=== PATIENT | male | born 1990 | race Caucasian/White ===

== ENCOUNTER 2017-07-08 21:59 | Emergency (ER) | payer SELFPAY ==
--- NOTE | 2017-07-08 22:36 | ERNOTE ---
ENT HPI Presenting Symptoms: other - cough and sore throat for 2 weeks Time Seen by Provider: 07/08/17 22:32 Source: patient, family Exam Limitations: no limitations - Immun/Allergies/Home Medications Immunizations: IMMUNIZATION HX Immunizations Up to Date Yes History of Influenza Vaccine No - History of Present Illness Narrative: Pt states he started with nasal congestion that progressed to sore throat and cough Severity: Present: mild ENT Location: Present: nose, throat Review of Systems - Review of Systems Constitutional: Present: See HPI. Absent: fever, chills EYE: Absent: eye discharge ENT: Present: See HPI, nose congestion, nasal drainage, sore throat Respiratory: Present: See HPI. Absent: shortness of breath, wheezing Cardiology: Absent: chest pain Gastrointestinal/Abdominal: Absent: nausea, vomiting Genitourinary: Present: no symptoms reported Musculoskeletal: Present: no symptoms reported Skin: Present: no symptoms reported Neurological: Present: no symptoms reported Endocrine: Present: no symptoms reported Hematologic/Lymphatic: Present: no symptoms reported Psych: Present: no symptoms reported - Patient's Past Medical History Patient History - Medical: No pertinent hx Patient History - Cardiac/Respiratory: No pertinent hx Patient History - Cancer: No Hx of Cancer Patient History - Surgical Procedures: No surgical history Patient History - Other: None - Social History Living Situations: home Abuse History: No History of abuse Psych History: No pertinent hx Smoking Status: Current every day smoker Alcohol Use: none Drug Use: marijuana - Immunizations Immunizations Up to Date: Yes History of Influenza Vaccine: No Physical Exam - Physical Exam General Appearance: Present: wd/wn, alert, no apparent distress Head Exam: Present: normal inspection, no evidence of injury Ears, Nose, Throat: Present: nasal congestion - mild with mild erythema, pharyngeal erythema - posterior, other - TM's pale bilateral. Absent: tonsillar exudate, tonsillar swelling Neck: Present: normal inspection, nontender Respiratory: Present: no respiratory distress, normal breath sounds, lungs clear Cardiovascular/Chest: Present: regular rate, rhythm, no murmur, normal peripheral pulses Back Exam: Present: normal inspection, normal range of motion Neurological Exam: Present: alert, oriented, normal mood/affect, no motor/ sensory deficits Skin Exam: Present: normal color, warm/dry Lymphatic Exam: Present: no adenopathy ED Progress - Results and Orders Patient's Lab Results:: I have reviewed the patient's lab results. Results and Orders: Laboratory Tests 07/08/17 22:12 Influenza Type A Ag Negative Influenza Type B Ag Negative - Vital Signs Patient's Vital Signs:: I have reviewed the patient's vital signs. Vital Signs: Vital Signs 07/08/17 22:03 Temperature 36.3 C L Pulse Rate 99 Respiratory 20 Rate Blood Pressure 153/96 O2 Sat by Pulse 98 Oximetry - Progress/Reassessment Chief Complaint: Sore Throat Departure Clinical Impression: Upper respiratory infection Qualifiers: URI type: acute nasopharyngitis (common cold) Qualified Code(s): J00 - Acute nasopharyngitis [common cold] - Departure Disposition: Home self-care Condition: Fair Instructions: Upper Respiratory Infection, Adult, [id number] Additional Instructions: use nasal flush and mucinex to help clear your nasal passages.
[2017-07-08 23:31] VITALS: BP 148/67
== END 2017-07-08 23:27 | disposition home or self-care (01) ==
LOC: ER 21:59
DX: J00 Acute nasopharyngitis [common cold]; F17.200 Nicotine dependence, unspecified, uncomplicated